=== PATIENT | female | born 1970 | race Two or more races ===

== ENCOUNTER → 2021-01-10 | Outpatient (CLI) | payer OTHER ==
--- NOTE | 2021-01-10 12:47 | RAD ---
EXAMINATION: US ABDOMEN LTD 01/10/2021 9:15 AM INDICATION: Right groin pain, possible hernia TECHNIQUE: Grayscale and color Doppler ultrasound images of the right groin Comparison: None. FINDINGS: No right inguinal hernia visualized. The visualized portion of the right common femoral art paty and vein are normal in appearance. There are 2 small right inguinal lymph nodes with normal morph ology. The largest measures 2.3 x 0.9 x 0.5 cm. No mass or fluid collection. IMPRESSION: No right inguinal hernia. Electronically signed by: Suellen Jansen MD (01/10/2021 12:45 PM) [id number]
== END ==
LOC: US 09:03
PROVIDERS: ATTEND Nurse Practitioner Family
DX: R10.9 Unspecified abdominal pain (principal)
CPT/HCPCS: 76705

== ENCOUNTER 2021-02-07 22:01 | Emergency (ER) | payer OTHER ==
[~2021-02-07] VITALS: Ht 154.9 cm; Wt 72.0 kg
[2021-02-07 22:45] VITALS: BP 138/72
[2021-02-07] MEDS ORDERED: HYDR-2759 PO (23:08)
--- NOTE | 2021-02-07 23:09 | PHYS DOC ---
General Adult EDM: Chief Complaint: BURN/SMOKE INHALATION HPI: HPI: 50-year-old female presents with thermal burn of the right fourth and fifth digit. The patient was cooking at home when some grease splashed up out of her walk on her fingers. She immediately washed it with cold water. It is quite painful at this time. She denies any other sites of burn. She has no other complaints. Review of Systems: Review of Systems: Constitutional: Denies fever or chills Eyes: Denies change in visual acuity HENT: Denies nasal congestion or sore throat Respiratory: Denies cough or shortness of breath Cardiovascular: Denies chest pain or edema GI: Denies abdominal pain, nausea, vomiting, bloody stools or diarrhea : Denies dysuria Musculoskeletal: Denies back pain or joint pain Integument: Burn right hand Neurologic: Denies headache, focal weakness or sensory changes Endocrine: Denies polyuria or polydipsia Lymphatic: Denies swollen glands Psychiatric: Denies depression or anxiety Allergies: Allergies: Allergies Coded Allergies Type Severity Reaction Last Updated Verified Iodine and Iodide Containing Produc Allergy Unknown 02/07/21 Yes Penicillins Allergy Unknown 02/07/21 Yes Sulfa (Sulfonamide Antibiotics) Allergy Unknown 02/07/21 Yes celecoxib Allergy Unknown 02/07/21 Yes lidocaine Allergy Unknown 02/07/21 Yes peanut oil Allergy Unknown 02/07/21 Yes Physical Exam: PE: Constitutional: Well developed, well nourished, no acute distress, non-toxic appearance. [] HENT: Normocephalic, atraumatic, bilateral external ears normal, oropharynx moist, no oral exudates, nose normal. [] Eyes: PERRLA, EOMI, conjunctiva normal, no discharge. [] Neck: Normal range of motion, no tenderness, supple, no stridor. [] Cardiovascular:Heart rate regular rhythm, no murmur [] Lungs & Thorax: Bilateral breath sounds clear to auscultation [] Abdomen: Bowel sounds normal, soft, no tenderness, no masses, no pulsatile masses. [] Skin: Partial-thickness reyes of the posterior fourth and fifth digit right hand. Less than 1% body surface area [] Back: No tenderness, no CVA tenderness. [] Extremities: No tenderness, no cyanosis, no clubbing, ROM intact, no edema. [] Neurologic: Alert and oriented X 3, normal motor function, normal sensory function, no focal deficits noted. [] Psychologic: Affect normal, judgement normal, mood normal. [] EKG: EKG: [] Radiology/Procedures: Radiology/Procedures: [] Heart Score: C/O Chest Pain: N/A Risk Factors: Risk Factors: DM, Current or recent (<one month) smoker, HTN, HLP, family history of CAD, obesity. Risk Scores: Score 0 - 3: 2.5% MACE over next 6 weeks - Discharge Home Score 4 - 6: 20.3% MACE over next 6 weeks - Admit for Clinical Observation Score 7 - 10: 72.7% MACE over next 6 weeks - Early Invasive Strategies Course & Med Decision Making: Course & Med Decision Making Pertinent Labs and Imaging studies reviewed. (See chart for details) We will place xeroderma over the reyes and wrap each finger individually. I have informed patient to leave this on for the next 24 hours and then to change the dressing as needed. She states verbal understanding. I will give her [place] 7.5 in the ED as well as a prescription for [place] 5/325 for home. She is stable for discharge at this time. [] Dragon Disclaimer: Dragon Disclaimer: This electronic medical record was generated, in whole or in part, using a voice recognition dictation system. Departure Departure: Impression: Primary Impression: Burn of finger of right hand Disposition: HOME / SELF CARE / HOMELESS Condition: STABLE Referrals: ERNESTINA PATTERSON DO (PCP) Patient Instructions: Burn Care, [id number]-[id number] Scripts Hydrocodone/Acetaminophen (Hydrocodone-Acetamin 5-325 mg) 1 Each Tablet 1 EACH PO Q4-6HRS PRN for PAIN, #10 TAB Prov: KATHLEEN CHANEY DO 02/07/21 KATHLEEN CHANEY DO February 07, 2021 23:09
[2021-02-07] MEDS: HYDROcodone/APAP 7.5/325MG 1 TAB TABLET PO ONE (23:39)
== END 2021-02-07 23:52 | disposition home or self-care (01) ==
LOC: ER 22:01
DX: T23.031A Burn of unspecified degree of multiple right fingers (nail), not including thumb, initial encounter (principal); Z88.0 Allergy status to penicillin; Z88.2 Allergy status to sulfonamides; Z88.6 Allergy status to analgesic agent; X10.1XXA Contact with hot food, initial encounter; Y93.89 Activity, other specified; Y92.89 Other specified places as the place of occurrence of the external cause; Y99.8 Other external cause status
CPT/HCPCS: 16000; 16020; 99283-25

== ENCOUNTER → 2021-04-07 | Day surgery (SDC) | payer OTHER ==
[~2021-04-07] MED LIST: ACETAMINOPHEN 500 MG TABLET PO PRN; BALANCED SALT IRRIG SOLN NO.2 500 ML IO ONE; BENZONATATE 100 MG CAPSULE. PO PRN; BRIMONIDINE 0.2% OPHTH SOLUTION 5ML BOTTLE. OD ONE; CEFUROXIME OPHTH 4 MG/0.4 ML SYRINGE. OD ONE; CHONDROIT-SOD-HYALURONATE KIT. OD ONE; GABA-586 PO; HYDR-2759 PO; IBUP800T19 PO; IBUPROFEN 200 MG TABLET PO PRN; IPRATRPIUM/ALBUTEROL 0.5/2.5MG 3 ML NEBU. NEB PRN; IV RINGERS SOLUTION,LACTATED 1,000 ML IV SCH; LEVO125T PO; LIDO/EPI IN BSS OPHTH 2.7 ML SYRINGE. OD ONE; LIDOCAINE 2% JELLY 6ML IN APPLICATOR. ONE; MIDAZOLAM HCL PF 2 MG/2 ML VIAL. IV ONE; MIDAZOLAM HCL PF 2 MG/2 ML VIAL. ONE; ONDANSETRON PF 4 MG/2 ML VIAL. IV PRN; PHENYLEPHRINE 10% OPHTH SOLUTION 5ML BOTTLE. OD PRN; POVIDONE-IODINE 5% OPHTH SOLUTION 30ML BOTTLE. OD ONE; POVIDONE-IODINE 5% OPHTH SOLUTION 30ML BOTTLE. OD PRN; POVIDONE-IODINE 5% OPHTH SOLUTION 30ML BOTTLE. ONE; PROPARACAINE 0.5% OPHTH SOLUTION 15ML BOTTLE. OD ONE; PROPARACAINE 0.5% OPHTH SOLUTION 15ML BOTTLE. OD PRN; prednisoLONE ACETATE 1% OPHTH SUSPENSION 5ML BOTTLE. OD ONE; vitamin d3 PO
[2021-04-07] MEDS: KETOROLAC TROMETHAMINE 0.5% OPHTH SOLUTION BOTTLE. OD SCH ×2 (07:24→07:30)
[2021-04-07] MEDS: TOBRAMYCIN 0.3% OPHTH SOLUTION 5ML BOTTLE. OD SCH ×2 (07:24→07:30)
[2021-04-07] MEDS: TROPICAMIDE 1% OPHTH SOLUTION 15ML BOTTLE. OD SCH ×3 (07:25→07:35)
[2021-04-07] MEDS: PHENYLEPHRINE 2.5% OPHTH SOLUTION 2ML BOTTLE. OD SCH ×3 (07:25→07:35)
--- NOTE | 2021-04-07 08:40 | PDOC4 ---
SURGEON: Jus Castro MD Date of Procedure: 04/07/21 PREOP Diagnosis Visually significant cataract: Right Eye OD Pre-existing astigmatism: Right Eye OD POSTOP Diagnosis Same PROCEDURE: Phaco w/ posterior chamber IOL: Right Eye OD ANESTHESIA Deep forniceal periocular 2% Lidocaine jelly Cookie/retro bulbar block with 2% Lidocaine with 0.5% Marcaine DESCRIPTION OF PROCEDURE The risks, benefits, and alternatives were discussed with the patient who elected to proceed. Informed consent was obtained in writing and placed in the chart After anesthetizing the eye topically, the patient was taken to the operating room, and the operative eye was prepped and draped in the usual sterile fashion for ocular surgery. A wire lid speculum was placed. A 1-mm clear corneal paracentesis incision was created with the side-port blade at a position three o'clock hours clockwise from the temporal cornea. Then, 1% non-preserved Lidocaine with epinephrine was injected into the anterior chamber followed by viscoelastic. Cotton-tipped applicators were used to stabilize the globe, and a 2.4 mm keratome was used to create a self-sealing incision in clear cornea at the temporal limbus. The Utrata forceps were used to create a continuous curvilinear capsulorrhexis. Balanced saline solution was injected vi a cannula beneath the capsulorrhexis edge to hydrodissect the lens nucleus and cortex from the lens capsule. The phacoemulsification handpiece and a chopping instrument were then used to remove the lens nucleus. The remaining epinuclear material and cortex were removed with the irrigation/aspiration handpiece. Viscoelastic was used to re-inflate the lens capsule, and the intraocular lens was injected directly into the capsular bag. The corneal wound edges were hydrated with balanced salt solution on a cannula and the irrigation/aspiration handpiece was used to extract the remaining viscoelastic. Cefuroxime 0.1mg/ml / Vigamox 0.5% was injected into the anterior chamber intracamerally. The wounds were inspected and found to be watertight at an appropriate intraocular pressure. Topical antibiotic drops were placed on the corneal surface. LRI: No If Yes, Number [] Lynn [] Length [] degrees Depth [] microns Incision Lynn: 180 Toric Lens Lynn [[id number]] Patch/shield with Maxitrol/Tobradex/Erythromycin ointment: Yes No Co-managed patients/postop examination stable for co-management with referring doctor. EBL EBL: None SPECIMANS COLLECTED Specimens Collected: None JUS CASTRO MD Apr 07, 2021 08:40
[2021-04-07 08:55] VITALS: BP 115/71
== END | disposition home or self-care (01) ==
LOC: SURG 07:04
PROVIDERS: ATTEND Ophthalmology
DX: H25.11 Age-related nuclear cataract, right eye (principal); H52.201 Unspecified astigmatism, right eye; G47.33 Obstructive sleep apnea (adult) (pediatric); K21.9 Gastro-esophageal reflux disease without esophagitis; E07.9 Disorder of thyroid, unspecified; Z72.89 Other problems related to lifestyle; Z87.891 Personal history of nicotine dependence; Z88.2 Allergy status to sulfonamides; Z91.041 Radiographic dye allergy status; Z88.0 Allergy status to penicillin; Z88.8 Allergy status to other drugs, medicaments and biological substances; Z79.899 Other long term (current) drug therapy; Z91.010 Allergy to peanuts; G43.909 Migraine, unspecified, not intractable, without status migrainosus; J45.909 Unspecified asthma, uncomplicated; Z98.890 Other specified postprocedural states
CPT/HCPCS: 66984; J2250; J3010; V2632

== ENCOUNTER 2021-05-13 22:54 | Inpatient (IN) | payer OTHER ==
[~2021-05-13] VITALS: Ht 154.9 cm; Wt 68.3 kg
[~2021-05-13 22:54] MED LIST changes: -ACETAMINOPHEN 500 MG TABLET PO PRN; -BALANCED SALT IRRIG SOLN NO.2 500 ML IO ONE; -BENZONATATE 100 MG CAPSULE. PO PRN; -BRIMONIDINE 0.2% OPHTH SOLUTION 5ML BOTTLE. OD ONE; -CEFUROXIME OPHTH 4 MG/0.4 ML SYRINGE. OD ONE; -CHONDROIT-SOD-HYALURONATE KIT. OD ONE; -IBUPROFEN 200 MG TABLET PO PRN; -IPRATRPIUM/ALBUTEROL 0.5/2.5MG 3 ML NEBU. NEB PRN; -IV RINGERS SOLUTION,LACTATED 1,000 ML IV SCH; -LIDO/EPI IN BSS OPHTH 2.7 ML SYRINGE. OD ONE; -LIDOCAINE 2% JELLY 6ML IN APPLICATOR. ONE; -MIDAZOLAM HCL PF 2 MG/2 ML VIAL. IV ONE; -MIDAZOLAM HCL PF 2 MG/2 ML VIAL. ONE; -ONDANSETRON PF 4 MG/2 ML VIAL. IV PRN; -PHENYLEPHRINE 10% OPHTH SOLUTION 5ML BOTTLE. OD PRN; -POVIDONE-IODINE 5% OPHTH SOLUTION 30ML BOTTLE. OD ONE; -POVIDONE-IODINE 5% OPHTH SOLUTION 30ML BOTTLE. OD PRN; -POVIDONE-IODINE 5% OPHTH SOLUTION 30ML BOTTLE. ONE; -PROPARACAINE 0.5% OPHTH SOLUTION 15ML BOTTLE. OD ONE; -PROPARACAINE 0.5% OPHTH SOLUTION 15ML BOTTLE. OD PRN; -prednisoLONE ACETATE 1% OPHTH SUSPENSION 5ML BOTTLE. OD ONE
[2021-05-13] MEDS ORDERED: ASPIRIN CHEWABLE 81 MG TABLET. PO ONE (23:15)
[2021-05-13] MEDS ORDERED: ASPIRIN ENTERIC COATED 81 MG TABLET.DR. PO ONE (23:19)
[2021-05-13] MEDS ORDERED: ASPIRIN 325 MG TABLET ONE (23:21)
[2021-05-13] MEDS ORDERED: IV RINGERS SOLUTION,LACTATED 1,000 ML IV SCH (23:30)
[2021-05-13] MEDS ORDERED: ASPIRIN 325 MG TABLET PO ONE (23:30)
--- NOTE | 2021-05-13 23:43 | EKG ---
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
--- NOTE | 2021-05-13 23:58 | PHYS DOC ---
Past History Past Medical History: Fibromyalgia, GERD, Hyperthyroid, Other Additional Past Medical Histor: RA Past Surgical History: No Surgical History Additional Past Surgical Histo: left knee meniscal tear Alcohol Use: None General Adult EDM: Chief Complaint: SHORTNESS OF BREATH HPI: HPI: "... I feeling just as bad as when .. I got COVID at end of March.... I woke felt short of breeath.. just feel bad..."I get really short of breath with even a little activity".." They would not give me the COVID vaccination because I have so many allergies.. like to flu vaccination....".. " I was doing better.. but now I feel as bad as when I was lst diagnosis of COVID.. 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 Pt. has been sick exposed to multiple sick patients. Patient did not get COVID vaccination at the [place] because she had had allergies to the flu vaccination. Patient denies any recent travel. No history of immunosuppression no history of recent travel. No history of coagulopathy. Patient normally healthy. Patient is due to start a new job at [employer] on Sunday. Pt. follows with Dr. Ocampo. Review of Systems: Review of Systems: Constitutional: Subjective history of fever or chills Eyes: Denies change in visual acuity HENT: History of nasal congestion and clear rhinorrhea Respiratory: History of cough, shortness of breath and wheezing Cardiovascular: Denies chest pain or edema GI: Denies abdominal pain, nausea, vomiting, bloody stools or diarrhea : Denies dysuria Musculoskeletal: Complains of generalized myalgia, arthralgia and malaise Integument: Denies rash Neurologic: Denies headache, focal weakness or sensory changes Endocrine: Denies polyuria or polydipsia Lymphatic: Denies swollen glands Psychiatric: Denies depression or anxiety Family History: Family History: See nursing for home meds Current Medications: Current Meds: Current Medications Medications (Trade) Dose Ordered Sig/Sophie Start Time Stop Time Status Last Admin Dose Admin Aspirin (Aspirin Chewable) 324 mg 1X ONCE 05/13/21 23:15 05/13/21 23:16 UNV Aspirin (Aspirin Enteric Coated) 81 mg STK-MED ONCE 05/13/21 23:19 05/13/21 23:19 DC Aspirin (Pauline Aspirin) 325 mg 1X ONCE 05/13/21 23:30 05/13/21 23:31 DC 05/13/21 23:25 325 MG Lactated Ringer's 1,000 ml @ 100 mls/hr Q10H 05/13/21 23:30 05/14/21 09:29 05/13/21 23:25 100 MLS/HR Allergies: Allergies: Allergies Coded Allergies Type Severity Reaction Last Updated Verified Sulfa (Sulfonamide Antibiotics) Allergy Severe freddy yaakov's 03/30/21 Yes lidocaine Allergy Severe anaphylaxis 03/30/21 Yes Penicillins Allergy Intermediate hives 03/30/21 Yes Iodine and Iodide Containing Produc Allergy Unknown 02/07/21 Yes celecoxib Allergy Unknown 02/07/21 Yes peanut oil Allergy Unknown 02/07/21 Yes Physical Exam: PE: Constitutional: Well developed, well nourished, moderate acute distress, non-toxic appearance. [] HENT: Normocephalic, atraumatic, bilateral external ears normal, oropharynx moist, no oral exudates, nose swollen turbinates clear rhinorrhea Eyes: PERRLA, EOMI, conjunctiva normal, no discharge. [] Neck: Normal range of motion, no tenderness, supple, no stridor. [] Cardiovascular: Tachycardia heart rate regular rhythm, no murmur [] Lungs & Thorax: Bilateral breath sounds equal apex with scattered wheezes throughout on auscultation. There are few basilar crackles. [] Abdomen: Bowel sounds normal, soft, no tenderness, no masses, no pulsatile masses. Surgery scar. Skin: Warm, dry, no erythema, no rash. [] Back: No tenderness, no CVA tenderness. [] Extremities: No tenderness, no cyanosis, no clubbing, ROM intact, no edema. No cording appreciated.. Lt. knee scar. Neurologic: Alert and oriented X 3, moves extremities on request, has distal sensory,, no focal deficits noted. [] Psychologic: Affect anxious, judgement normal, mood normal. [] Current Patient Data: Vital Signs: Vital Signs Date Time Temp Pulse Resp B/P (MAP) Pulse Ox O2 Delivery O2 Flow Rate FiO2 05/13/21 23:09 97.6 98 20 133/86 95 Room Air EKG: EKG: My interpretation EKG shows a sinus rhythm at 71 bpm. Some nonspecific T waves in the anterior leads. But no findings acute STEMI of contralateral changes. Time of this EKG 2322 hrs. [] My interpretation second EKG shows a sinus rhythm at 61 bpm. Some nonspecific T wave changes. No findings of acute interval change from prior EKG on file. Time of this EKG is 0334 hrs. Radiology/Procedures: Radiology/Procedures: [][address] [id number] IMAGING REPORT Signed PATIENT: MADISON BARRIOS ACCOUNT: [id number] : 1970 LOCATION: ER AGE: 50 SEX: F EXAM STATUS: REG ER ORD. PHYSICIAN: MADAN SWANSON MD REASON: DYSPNEA cOVID IN PROCEDURE: PORTABLE CHEST 1V Study: XR CHEST 1V Indication: Dyspnea. Covid. Comparison: None. Findings: Basilar/subpleural infiltrates on both the right and left. No pleural effusion or pneumothorax. The cardiomediastinal silhouette and kyle are within normal limits given AP technique. Cholecystectomy clips. Impression: Subpleural/basilar airspace infiltrates suspicious for an atypical/viral pneumonia. Electronically signed by: KAYY CUELLAR MD (05/14/2021 12:08 AM) [facility] DICTATED AND SIGNED BY: KAYY CUELLAR MD DATE: 05/14/21 0007 CC: MADAN SWANSON MD; ERNESTINA OCAMPO DO ~MTH0 0 Heart Score: C/O Chest Pain: Yes HEART Score for Chest Pain: HEART Score for Chest Pain Response (Comments) Value History Moderately Suspicious 1 ECG Nonspecific Repolarizatio 1 Age >45 - < 65 1 Risk Factors 1 or 2 Risk Factors 1 Troponin < Normal Limit 0 Total 4 Risk Factors: Risk Factors: DM, Current or recent (<one month) smoker, HTN, HLP, family history of CAD, obesity. Risk Scores: Score 0 - 3: 2.5% MACE over next 6 weeks - Discharge Home Score 4 - 6: 20.3% MACE over next 6 weeks - Admit for Clinical Observation Score 7 - 10: 72.7% MACE over next 6 weeks - Early Invasive Strategies Course & Med Decision Making: Course & Med Decision Making Pertinent Labs and Imaging studies reviewed. (See chart for details) Discussed presentation, testing and tx. plan with Dr. David. Plan admit with serial enzymes and complete PE - V/Q scan in a.m.. We will cover with Eliquina at this time. Will start on Zithromax. Neil CURRANIs 2 puffs 4-x day. Admit with VQ in AM. Impression: 1. Chest Pain 2. COVID Pneumonia 04/29 3. Elevated D-dimer 11.23 4. Elevated AST 50 and ALT 83 Advised no beds available in [facility]. Pt place in ED hold. [] Hussein Disclaimer: Hussein Disclaimer: This electronic medical record was generated, in whole or in part, using a voice recognition dictation system. Departure Departure: Referrals: ERNESTINA OCAMPO DO (PCP) Hussein Disclaimer This chart was dictated in whole or in part using Voice Recognition software in a busy, high-work load, and often noisy Emergency Department environment. It may contain unintended and wholly unrecognized errors or omissions. MADAN SWANSON MD May 13, 2021 23:58
--- NOTE | 2021-05-14 00:10 | RAD ---
Study: XR CHEST 1V Indication: Dyspnea. Covid. Comparison: None. Findings: Basilar/subpleural infiltrates on both the right and left. No pleural effusion or pneumothorax. The c ardiomediastinal silhouette and kyle are within normal limits given AP technique. Cholecystectomy clips. Impression: Subpleural/basilar airspace infiltrates suspicious for an atypical/viral pneumonia. Electronically signed by: KAYY CUELLAR MD (05/14/2021 12:08 AM) [facility]
[2021-05-14 00:11] LABS: BASO % 1 % (0-3); EOS # 0.1 x10^3/uL (0.0-0.7); EOS % 2 % (0-3); HEMATOCRIT 39.6 % (36.0-47.0); HEMOGLOBIN 13.7 g/dL (12.0-15.5); LYMPH # 2.6 x10^3/uL (1.0-4.8); LYMPH % 37 % (24-48); MEAN CORPUSCULAR HEMOGLOBIN 32 pg (25-35); MEAN CORPUSCULAR HGB CONC 35 g/dL (31-37); MEAN CORPUSCULAR VOLUME 91 fL (79-100); MONO # 0.6 x10^3/uL (0.0-1.1); MONO % 9 % (0-9); NEUT # 3.5 x10^3uL (1.8-7.7); NEUT % 51 % (31-73); PLATELET COUNT 497 x10^3/uL (140-400); RED BLOOD COUNT 4.34 x10^6/uL (3.50-5.40); RED CELL DISTRIBUTION WIDTH 12.5 % (11.5-14.5); WHITE BLOOD COUNT 6.8 x10^3/uL (4.0-11.0)
[2021-05-14 00:28] LABS: CALCIUM 8.5 mg/dL (8.5-10.1); CREATININE 0.8 mg/dL (0.6-1.0); GFR 75.9; POTASSIUM 3.8 mmol/L (3.5-5.1)
[2021-05-14 00:30] LABS: BACTERIA,URINE FEW /HPF (0-FEW); BILIRUBIN,URINE NEG (NEG); CLARITY,URINE CLEAR; COLOR,URINE YELLOW; GLUCOSE,URINE NEG (NEG); NITRITE,URINE NEG (NEG); RBC,URINE 0 /HPF (0-2); SQUAMOUS EPITHELIAL CELL,UR MOD /LPF; UROBILINOGEN,URINE 0.2 mg/dL (0.2 mg/dL)
[2021-05-14 00:37] LABS: BARBITURATES NEG (NEG); BENZODIAZEPINES NEG (NEG); CANNABINOIDS NEG (NEG); COCAINE NEG (NEG); METHADONE NEG (NEG); OPIATES NEG (NEG); PHENCYCLIDINE NEG (NEG)
[2021-05-14 00:39] LABS: ALBUMIN 3.3 g/dL (3.4-5.0); DIRECT BILIRUBIN 0.1 mg/dL (0.0-0.2); MAGNESIUM 2.1 mg/dL (1.8-2.4); TOTAL BILIRUBIN 0.4 mg/dL (0.2-1.0); TOTAL PROTEIN 7.1 g/dL (6.4-8.2)
[2021-05-14 00:40] LABS: AMPHETAMINE/METHAMPHETAMINE NEG (NEG)
[2021-05-14] MEDS ORDERED: ACETAMINOPHEN 325 MG TABLET PO PRN ×2 (01:30→18:15)
[2021-05-14] MEDS ORDERED: ONDANSETRON PF 4 MG/2 ML VIAL. IVP PRN (01:30)
[2021-05-14] MEDS ORDERED: ANTI-COAG MONITOR BY PHARMACY. MC PRN (01:30)
[2021-05-14] MEDS ORDERED: ALBUTEROL SULFATE 8GM INHALER. INH ONE (01:30)
[2021-05-14] MEDS ORDERED: ALBUTEROL SULFATE 8GM INHALER. ONE (01:36)
[2021-05-14] MEDS: ALBUTEROL SULFATE 8GM INHALER. INH SCH ×4 (01:41→20:00)
[2021-05-14] MEDS: APIXABAN 5 MG TABLET. PO SCH ×2 (01:44→20:23)
[2021-05-14 01:59] VITALS: BP 145/63
[2021-05-14] MEDS ORDERED: AZITHROMYCIN 250 MG TABLET. PO ONE (02:00)
--- NOTE | 2021-05-14 04:30 | EKG ---
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
[2021-05-14] MEDS ORDERED: APIXABAN 5 MG TABLET. PO SCH (09:00)
[2021-05-14 11:25] LABS: THYROID STIM HORMONE (TSH) 5.295 uIU/mL (0.358-3.740)
[2021-05-14 14:03] VITALS: BP 116/79
[2021-05-14 16:25] VITALS: BP 134/68
[2021-05-14] MEDS: ASPIRIN CHEWABLE 81 MG TABLET. PO SCH (16:55)
[2021-05-14] MEDS ORDERED: predniSONE 20 MG TABLET PO ONE (18:15)
[2021-05-14] MEDS ORDERED: diphenhydrAMINE 50 MG/ML VIAL IVP PRN (18:15)
[2021-05-14] MEDS ORDERED: GABAPENTIN 300 MG CAPSULE. PO PRN (18:15)
--- NOTE | 2021-05-14 18:30 | NUR ---
Pt admitted to floor via EMS from ED for shortness of breath. Pt was diagnosed with COVID-19 on 04/28/21. She states she has had increased SOA since last night, didnt feel right, so she came in to be checked out. Pt's D-Dimer lab was elevated so she was admitted for a work up of a possible PE. Pt has iodine allergy and the isotrope for VQ scan is on back order. Dr. David saw pt on rounds and discussed iodine allergy reaction. Pt agreed to take contrast for CT scan with appropriate pre-medication for allergy. Orders entered for this protocol to be completed. Pt assessed and VS per flowsheet. Pt denies pain at this time except for a headache. Will continue to monitor.
--- NOTE | 2021-05-14 19:24 | HP ---
ADMIT DATE: 05/14/2021 HISTORY OF PRESENT ILLNESS: The patient is a 50-year-old female patient who presented to the Emergency Room with worsening of shortness of breath. She got COVID at the end of March. She woke up this morning feeling short of breath, and just feels bad. She got short of breath with very little activity and the patient did not receive COVID vaccination because she has so many allergies like flu vaccine. Apparently, she was doing well after the diagnosis of COVID, but now her symptoms have worsened. She has been exposed to multiple sick patients; however, the patient denied any recent travel. No history of immunosuppression. Does have a history of exposure to sick people. No history of coagulopathy. 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 She was extensively investigated in the Emergency Room and she has had lab work and imaging studies. Her lab work showed white cell count to be normal with normal hemoglobin, hematocrit and platelets. Her chemistry was essentially unremarkable. Her D-dimer was extremely high at 11.23. However, her prothrombin time, INR and APTT were normal. Urinalysis showed she has 5-10 wbc's, very few bacteria. Her tox screen was negative and her coronavirus by rapid testing was negative. Her chest x-ray showed the patient has basilar subpleural infiltrates in both right and left. No pleural effusion or pneumothorax. The cardiomediastinal silhouette and kyle are within normal limits. Given anterior-posterior technique, cholecystectomy clips, the airspace infiltrate are suspicious for an atypical or viral pneumonia. The patient was admitted with COVID pneumonia. Because of elevated D-dimer, she was started empirically on apixaban 10 mg twice a day, was given Zithromax and albuterol sulfate. PAST MEDICAL HISTORY: Significant for hypothyroidism, gastroesophageal reflux disease, irritable bowel syndrome, fibromyalgia, migraine headache, and nephrolithiasis. PAST SURGICAL HISTORY: Significant for right knee arthroscopic surgery, tubal ligation, total abdominal hysterectomy, bilateral cataract extraction. ALLERGIES: SHE IS ALLERGIC TO IODINE AND IODIDE CONTAINING PRODUCTS, PENICILLIN, SULFA, CELEBREX, LIDOCAINE, AND PEANUT OIL. MEDICATIONS: She is currently on the following medications: She is on ibuprofen 800 mg 3 times a day, hydrocodone/APAP 5/325 one tablet every 4-6 hours, gabapentin 300 mg at bedtime, levothyroxine sodium 125 mcg once a day and vitamin D3 1000 units once a day. FAMILY HISTORY: She has 2 older brothers and 1 older sister. Her father is still alive at age of 80 years. Mother at age of 69 because of complication of scleroderma. SOCIAL HISTORY: She is , has 4 boys and 1 daughter. She quit smoking years ago. Drinks alcohol very occasionally. Does not use any drugs. 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 REVIEW OF SYSTEMS: As per history of present illness. PHYSICAL EXAMINATION: GENERAL: On examining her, there was no pallor, jaundice, cyanosis or thyromegaly. No jugular venous distention. No limb edema. VITAL SIGNS: Her heart rate was 99, blood pressure was 133/86, temperature 97.6, respiratory rate 20, and oxygen saturation was 95%. HEAD, EYES, EARS, NOSE, AND THROAT: Normocephalic, atraumatic. NECK: Supple. HEART: Showed normal first and second heart sounds, no gallop, rub or murmur. CHEST: Clear to auscultation, no crepitation or rhonchi. ABDOMEN: Distended, soft, nontender. NEUROLOGIC: She was grossly intact. LABORATORY DATA: Showed a white cell count of 6800, hemoglobin 13.7, hematocrit 39, MCV 91, and a platelet count of 497,000. Her serum sodium was 140, potassium 3.8, chloride 104, bicarbonate 27, anion gap of 9, BUN 7, creatinine 0.8. Estimated GFR was 75 mL per minute. Her glucose 120, calcium was 8.5, magnesium 2.1. Total bilirubin and alkaline phosphatase are normal. AST, ALT slightly elevated. Her CK was 37. Total protein was 7.1, albumin 3.3. Her serum triglycerides were 340, total cholesterol 265, LDL cholesterol 165, VLDL was 68, HDL was 32 and the ratio was 8. Her lipase was 118 and TSH was 5.295. Her prothrombin time, INR and APTT are normal. D-dimer was extremely high at 11.23. Her urinalysis was unremarkable. Toxic screen was negative. Her SARS COVID antigen rapid test was negative. Chest x-ray obviously showed that she has bilateral airspace infiltrate, suspicious for atypical and viral pneumonia. PLAN: I will continue with dexamethasone. I will arrange for her to have venous Doppler ultrasound if the patient has the clots in her leg ____ she can continue with apixaban. If she is negative we will start her on prednisone 20 mg at 6:00, 20 mg at midnight and 20 mg at 6:00 in the morning and then 50 mg of Benadryl tomorrow. We will try to arrange the venous Doppler ultrasound either tonight or tomorrow morning early so that we can avoid the contrast if at all possible. VIDAL/JUAN CARLOS/BURAK DR: Elise TID: [id number]
[2021-05-14 20:05] VITALS: BP 109/73
[2021-05-14] MEDS: IBUPROFEN 800 MG TABLET. PO SCH (20:23)
[2021-05-14] MEDS ORDERED: AZITHROMYCIN 250 MG TABLET. PO SCH (21:00)
--- NOTE | 2021-05-14 22:06 | RAD ---
Bilateral Lower Extremity Venous Doppler Ultrasound History: Reason: shortness of breath with markedly D Dimer Comparison: None Procedure: Color flow, duplex, spectral analysis and 2D images are obtained with and without compress ion in the area of the common femoral vein, superficial femoral vein - femoral vein junction, main fe moral vein (superficial femoral vein) and popliteal vein. Veins of the proximal calf are also imaged. Findings: There is normal duplex flow, color flow and compressibility of all visualized vein segments. No evide nce of deep venous thrombus is present. Impression: No evidence of DVT. Electronically signed by: Osei Masters III, MD (05/14/2021 10:04 PM) [facility]
[2021-05-14 23:00] VITALS: BP 115/71
--- NOTE | 2021-05-15 03:57 | NUR ---
Doppler ultrasound report negative for DVT, CT angio scheduled for a.m. as per order; no voiced needs or concerns thus far; sleeping soundly with no apparent distress.
[2021-05-15] MEDS ORDERED: predniSONE 20 MG TABLET PO ONE ×2 (06:00)
[2021-05-15] MEDS ORDERED: LEVOTHYROXINE 125 MCG TABLET PO SCH (06:00)
[2021-05-15 06:10] VITALS: BP 116/59
[2021-05-15 07:21] LABS: BASO # 0.1 x10^3/uL (0.0-0.2); BASO % 2 % (0-3); EOS % 0 % (0-3); HEMOGLOBIN 13.9 g/dL (12.0-15.5); LYMPH # 1.4 x10^3/uL (1.0-4.8); LYMPH % 17 % (24-48); MEAN CORPUSCULAR HEMOGLOBIN 32 pg (25-35); MEAN CORPUSCULAR HGB CONC 35 g/dL (31-37); MEAN CORPUSCULAR VOLUME 92 fL (79-100); MONO # 0.2 x10^3/uL (0.0-1.1); MONO % 3 % (0-9); NEUT # 6.1 x10^3uL (1.8-7.7); NEUT % 78 % (31-73); PLATELET COUNT 466 x10^3/uL (140-400); RED BLOOD COUNT 4.37 x10^6/uL (3.50-5.40); RED CELL DISTRIBUTION WIDTH 12.4 % (11.5-14.5); WHITE BLOOD COUNT 7.8 x10^3/uL (4.0-11.0)
[2021-05-15 07:42] LABS: ALBUMIN 3.4 g/dL (3.4-5.0); ALBUMIN/GLOBULIN RATIO 0.9 (1.0-1.7); CALCIUM 8.8 mg/dL (8.5-10.1); CREATININE 0.6 mg/dL (0.6-1.0); GFR 105.8; POTASSIUM 4.5 mmol/L (3.5-5.1); TOTAL BILIRUBIN 0.4 mg/dL (0.2-1.0); TOTAL PROTEIN 7.4 g/dL (6.4-8.2)
[2021-05-15] MEDS ORDERED: IOHEXOL 350 MG/ML 100 ML VIAL. IV ONE (08:00)
[2021-05-15] MEDS: ALBUTEROL SULFATE 8GM INHALER. INH SCH ×2 (08:00→12:00)
--- NOTE | 2021-05-15 08:27 | RAD ---
CTA OF THE CHEST WITH AND WITHOUT CONTRAST Clinical indications: Shortness of breath and elevated d-dimer. Covid positive. Technique: Noncontrast axial localizer was performed. After IV infusion of 100 cc of Omnipaque 350, h elical CT scanning of the chest was performed using the CTA pulmonary embolism protocol. Coronal and sagittal MIP reconstructions were generated. PQRS compliance Statement One or more of the following individualized dose reduction techniques were utilized for this study: 1. Automated exposure control 2. Adjustment of the mA and/or kV according to patient size 3. Use of iterative reconstruction technique Comparison: None available. Findings: No pulmonary embolism is seen. No focal aneurysmal dilatation or dissection of the thoracic aorta is seen. Heart size is mildly enlarged. Diffuse bilateral peripheral groundglass nodular lung infiltrates are seen more prominent within the lower lobes. No pleural effusion or pneumothorax is se en. The proximal bronchial tree is patent. No adrenal mass is evident. No lytic process is seen. IMPRESSION: No pulmonary embolism. Bilateral peripheral nodular groundglass lung infiltrates which may be seen with Covid 19 pneumonia. Mild cardiomegaly. Electronically signed by: Atif Singer MD (05/15/2021 8:25 AM) [id number]
[2021-05-15] MEDS: ASPIRIN CHEWABLE 81 MG TABLET. PO SCH (08:51)
[2021-05-15] MEDS: IBUPROFEN 800 MG TABLET. PO SCH (08:51)
[2021-05-15] MEDS: APIXABAN 5 MG TABLET. PO SCH (08:51)
[2021-05-15] MEDS ORDERED: CHOLECALCIFEROL (VITAMIN D3) 1,000 UNIT TABLET PO SCH (09:00)
[2021-05-15 10:53] VITALS: BP 103/77
[2021-05-15] MEDS ORDERED: AZIT250T PO (13:55)
[2021-05-15] MEDS ORDERED: CEFD300C PO (13:55)
[2021-05-15] MEDS ORDERED: DEXA4TAB63 PO (13:59)
--- NOTE | 2021-05-15 17:00 | DS ---
DATE OF DISCHARGE: 05/15/2021 HOSPITAL COURSE: The patient is a 50-year-old [place] female patient who was admitted to the Emergency Room with a complaint of worsening shortness of breath. She apparently had COVID at the end of March and woke up on the day of admission with worsening shortness of breath. She was evaluated in the Emergency Room and apparently, her D-dimer was found to be high at 11.23, although all her lab works are well within normal range. We did actually a venous Doppler ultrasound of both lower extremities, which showed there was normal Doppler color flow and compressibility of all visualized vein segments. No evidence of deep vein thrombosis was present. We did also CT angio of the chest, which showed there was no evidence of pulmonary embolism. The patient has bilateral peripheral nodular ground-glass lung infiltrate, which may be seen with COVID-19 pneumonia. When I saw her today, she was resting slightly propped up in bed, in no apparent respiratory distress. She is awake, alert, feeling generally much improved. PHYSICAL EXAMINATION: GENERAL: When I examined her, there was no pallor, jaundice, cyanosis or thyromegaly. No jugular venous distention. No limb edema. VITAL SIGNS: Her heart rate was 59, blood pressure was 103/77, temperature was 98.3, respiratory rate was 18 and oxygen saturation was 97% on room air. HEAD, EYES, EARS, NOSE, AND THROAT: Normocephalic, atraumatic. NECK: Supple. HEART: Showed normal first and second heart sounds, no gallop or murmur. CHEST: Clear to auscultation, no crepitation or rhonchi. ABDOMEN: Not distended, soft, nontender. NEUROLOGIC: She was grossly intact. Her intake and output were incompletely recorded. LABORATORY DATA: Showed white cell count of 7800, hemoglobin 14, hematocrit 40, MCV 92 and platelet count of 166,000. Serum sodium was 138, potassium 4.5, chloride 104, bicarbonate 26, anion gap of 8, BUN 11, creatinine 0.6. Estimated GFR was 105 mL per minute. Her glucose 140, calcium was 8.8. Total bilirubin and alkaline phosphatase are normal. AST, ALT slightly elevated. Total protein 7.4, albumin was 3.4, her serum triglycerides were high at 340. Total cholesterol was 265, LDL was 165, VLDL was 68, HDL was 32 and the ratio was 8. TSH was slightly elevated at 5.295. D-dimer was 11.23. However, PT, INR and APTT were normal. Her coronavirus PCR was positive. DISCHARGE MEDICATIONS: The patient was discharged home to continue on Zithromax 250 mg once a day for 3 more days and cefdinir 300 mg twice a day for 7 more days, together with tapering course of steroids. FINAL DISCHARGE DIAGNOSES: COVID-19 pneumonia versus community-acquired pneumonia. The patient continued to maintain her oxygen saturation at 97% on room air. The patient has multiple other medical problems including: A. Hypothyroidism. B. Gastroesophageal reflux disease. C. Irritable bowel syndrome. D. Fibromyalgia. E. Migraine headache. F. Nephrolithiasis. YESENIA DR: Elise TID: [id number]
--- NOTE | 2021-05-15 18:35 | NUR ---
Discharge note pt discharged at 1508 via wheel chair accompanied by staff. pt given written and verbal instructions with verbal statement of understanding achieved.
[2021-05-15] MEDS ORDERED: AZITHROMYCIN 250 MG TABLET. PO SCH (21:00)
[2021-05-15] MEDS ORDERED: ENOXAPARIN 40 MG/0.4 ML SYRINGE. SQ SCH (21:00)
== END 2021-05-15 15:07 | disposition home or self-care (01) | DRG 177 ==
LOC: ER 22:54 → 1 SOUTH 05-14 01:31
PROVIDERS: ADMIT Internal Medicine; ATTEND Internal Medicine
DX: U07.1 COVID-19 (principal); J12.82 Pneumonia due to coronavirus disease 2019; K21.9 Gastro-esophageal reflux disease without esophagitis; E03.9 Hypothyroidism, unspecified; M79.7 Fibromyalgia; M06.9 Rheumatoid arthritis, unspecified; K58.9 Irritable bowel syndrome, unspecified; G43.909 Migraine, unspecified, not intractable, without status migrainosus; N20.0 Calculus of kidney; Z88.0 Allergy status to penicillin; Z88.2 Allergy status to sulfonamides; Z91.041 Radiographic dye allergy status; Z79.01 Long term (current) use of anticoagulants; Z87.442 Personal history of urinary calculi; Z87.891 Personal history of nicotine dependence; Z90.710 Acquired absence of both cervix and uterus; Z98.41 Cataract extraction status, right eye; Z98.42 Cataract extraction status, left eye
CPT/HCPCS: 36415; 71045; 71275; 80048; 80053; 80061; 80076; 80307; 81001; 82550; 83690; 83735; 83880; 84443; 84484; 85025; 85379; 85610; 85730; 87086; 87426; 93005; 93970; 96360; 96361; J0696; J1200; J7120; J7512; Q9967; U0003; 99285-25

== ENCOUNTER 2021-11-29 19:31 | Emergency (ER) | payer BC, OTHER ==
[~2021-11-29] VITALS: Ht 154.9 cm; Wt 74.4 kg
[~2021-11-29 19:31] MED LIST changes: +AZIT250T PO; +CEFD300C PO; +DEXA4TAB63 PO
--- NOTE | 2021-11-29 19:40 | PHYS DOC ---
Past History Past Medical History: Fibromyalgia, GERD, Hyperthyroid, Other Additional Past Medical Histor: RA Past Surgical History: No Surgical History Additional Past Surgical Histo: left knee meniscal tear Alcohol Use: None Adult General HPI HPI Patient is a 50-year-old female with a past medical history significant for fibromyalgia, hypertension and hyperlipidemia who presents with a chief complaint of a general feeling of unwellness, left-sided sharp chest pain with radiation to the shoulder and back that is been going on for couple days intermittently with associated dry cough. Denies any recent travels or trauma, illnesses, fevers, dyspnea on exertion, orthopnea, PND or edema, abdominal pain, nausea, vomiting, diarrhea, blood in the stool, dysuria or hematuria. Denies any alcohol or drug use. States she is eating and drinking normally for her. States she is otherwise making urine and stool normally for her. Review of Systems Review of Systems Review of systems otherwise unremarkable except noted in HPI Allergies Allergies Allergies Coded Allergies Type Severity Reaction Last Updated Verified Sulfa (Sulfonamide Antibiotics) Allergy Severe freddy yaakov's 03/30/21 Yes lidocaine Allergy Severe anaphylaxis 03/30/21 Yes Penicillins Allergy Intermediate hives 03/30/21 Yes Iodine and Iodide Containing Produc Allergy Unknown 02/07/21 Yes celecoxib Allergy Unknown 02/07/21 Yes peanut oil Allergy Unknown 02/07/21 Yes Physical Exam Physical Exam Constitutional: Well developed, well nourished, no acute distress, non-toxic appearance. [] HENT: Normocephalic, atraumatic, bilateral external ears normal, oropharynx moist, no oral exudates, nose normal. [] Eyes: conjunctiva normal, no discharge. [] Neck: Normal range of motion, no tenderness, supple, no stridor. [] Cardiovascular:Heart rate regular rhythm, no murmur [] Lungs & Thorax: Bilateral breath sounds clear to auscultation [] Abdomen: soft, no tenderness, no masses, no pulsatile masses. [] Skin: Warm, dry, no erythema, no rash. [] Back: No tenderness, no CVA tenderness Extremities: No tenderness, no cyanosis, no clubbing, ROM intact, no edema. [] Neurologic: Alert and oriented X 3, normal motor function, normal sensory function, able to sit, stand and walk without issue no focal deficits noted. [] Psychologic: Affect normal, judgement normal, mood normal. [] EKG EKG [] Radiology/Procedures Radiology/Procedures [] Heart Score C/O Chest Pain: Yes HEART Score for Chest Pain: HEART Score for Chest Pain Response (Comments) Value History Slighlty/Non-Suspicious 0 ECG Normal 0 Age >45 - < 65 1 Risk Factors 1 or 2 Risk Factors 1 Troponin < Normal Limit 0 Total 2 Risk Factors: Risk Factors: DM, Current or recent (<one month) smoker, HTN, HLP, family history of CAD, obesity. Risk Scores: Risk Factors: DM, Current or recent (<one month) smoker, HTN, HLP, family history of CAD, obesity. Course & Med Decision Making Course & Med Decision Making Patient is a 50-year-old female who presents with pleuritic chest pain with radiation to the shoulder and back, dry cough, and body aches [] Vital signs notable for hypertension. Physical exam noted above. Patient states she is unable to take aspirin. Given medicines for symptom control. EKG with a rate of 74, QRS of 80, QTc of 431, no STEMI. Normal troponin. Low risk Wells. Laboratory analysis not concerning. CT of the chest not concerning. Discussed all findings with patient. Discussed differential including uncontrolled GERD. Advised to follow-up in the morning with primary care physician. Gave return precautions to the ED. Patient grateful, verbalized understanding agree with plan of discharge Dragon Disclaimer Dragon Disclaimer This electronic medical record was generated, in whole or in part, using a voice recognition dictation system. Departure Departure: Impression: Primary Impression: Chest pain Disposition: HOME / SELF CARE / HOMELESS Condition: STABLE Referrals: PRINCE MAIER-DIRK (PCP) Patient Instructions: Chest Pain (Nonspecific) Additional Instructions: Thank you for coming into the emergency department tonight and allowing us to take care of you. Please read the attached information carefully to go over things that we discussed. You can begin a Tylenol and Benadryl regimen. Please continue taking an [id number] heartburn medicine. Please follow-up in the morning with your primary care physician update on your ED visit and set up a follow-up as soon as you can for reevaluation. Please come back with new or concerning symptoms as we discussed. YEIMI BOOGIE MD Nov 29, 2021 19:40
[2021-11-29] MEDS ORDERED: ACETAMINOPHEN 500 MG TABLET PO ONE (20:00)
--- NOTE | 2021-11-29 20:21 | RAD ---
Exam: CT of chest without contrast INDICATION: Left-sided and upper chest pain TECHNIQUE: Sequential axial images through the chest obtained without IV contrast. Sagittal and coron al reformatted images were reconstructed from the axial data and reviewed. Exposure: One or more of the following in the visualized dose reduction techniques were utilized for this examination: 1. Automated exposure control 2. Adjustment of the MA and/or KV according to patient size 3. Use of iterative of reconstructive technique Comparisons: 05/15/2021 FINDINGS: No enlarged mediastinal lymph nodes are identified. Heart size is normal. No pericardial effusion. Thoracic aorta has normal course and caliber. Pulmonar y artery is not enlarged. Airways are patent. No consolidation or pneumothorax. No suspicious lung nodules. No pleural effusion or thickening. Visualized upper abdomen is unremarkable. No suspicious osseous lesions or acute fractures. IMPRESSION: No acute process identified within the chest. Electronically signed by: Jennifer Lawrence MD (11/29/2021 8:19 PM) ANTHONY
[2021-11-29 20:30] LABS: BASO % 1 % (0-3); EOS # 0.1 x10^3/uL (0.0-0.7); EOS % 2 % (0-3); HEMATOCRIT 39.8 % (36.0-47.0); HEMOGLOBIN 14.1 g/dL (12.0-15.5); LYMPH # 2.9 x10^3/uL (1.0-4.8); LYMPH % 41 % (24-48); MEAN CORPUSCULAR HEMOGLOBIN 32 pg (25-35); MEAN CORPUSCULAR HGB CONC 35 g/dL (31-37); MEAN CORPUSCULAR VOLUME 91 fL (79-100); MONO # 0.5 x10^3/uL (0.0-1.1); MONO % 7 % (0-9); NEUT # 3.4 x10^3uL (1.8-7.7); NEUT % 49 % (31-73); PLATELET COUNT 241 x10^3/uL (140-400); RED BLOOD COUNT 4.39 x10^6/uL (3.50-5.40); RED CELL DISTRIBUTION WIDTH 12.9 % (11.5-14.5)
[2021-11-29 20:44] LABS: CREATININE 0.6 mg/dL (0.6-1.0); GFR 105.8; MAGNESIUM 2.2 mg/dL (1.8-2.4); POTASSIUM 3.9 mmol/L (3.5-5.1)
[2021-11-29] MEDS ORDERED: CALCIUM CARBONATE 500 MG TAB.CHEW PO PRN (20:45)
[2021-11-29 21:22] VITALS: BP 154/95
[2021-11-29] MEDS ORDERED: oxyCODONE/APAP 5/325 1 TAB TABLET PO ONE (22:00)
--- NOTE | 2021-11-30 06:46 | EKG ---
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
== END 2021-11-29 21:36 | disposition home or self-care (01) ==
LOC: ER 19:31
DX: R07.89 Other chest pain (principal); R05.9 Cough, unspecified; M79.7 Fibromyalgia; K21.9 Gastro-esophageal reflux disease without esophagitis; M06.9 Rheumatoid arthritis, unspecified; E78.5 Hyperlipidemia, unspecified; Z88.2 Allergy status to sulfonamides; Z88.4 Allergy status to anesthetic agent; Z88.0 Allergy status to penicillin; Z91.041 Radiographic dye allergy status; Z91.018 Allergy to other foods; Z88.8 Allergy status to other drugs, medicaments and biological substances
CPT/HCPCS: 36415; 71250; 80048; 83735; 84484; 85025; 93005; 96374; 99285; J3010